=== PATIENT | female | born 1950 | race Caucasian/White ===

== ENCOUNTER → 2017-02-24 | Outpatient (CLI) | payer MEDICARE, BC ==
--- NOTE | ~2017-02-24 | MY11 ---
[facility] A Service of [facility] RADIOLOGY TEXT RESULTS PATIENT: CAROL LEONG LOCATION: [facility] : 46 UNIT #: [id number] AGE: [address]: IRVIN TELLEZ MD SEX: F ORDER DR: [id number] [place] [id number] O MR#: [id number] Acc #: [id number] NAME: CAROL LEONG : 1950 SEX: F STUDY DATE/TIME: 02/24/2017 11:01 UNIT: [facility] ROOM: STUDY DESCRIPTION: MY Mammogram Screening [place] Attending Physician: Irvin Tellez M.D. Referring Physician: Irvin Tellez M.D. Ordering Physician: Irvin Tellez M.D. Primary Care Physician: Irvin Tellez M.D. MEDICAL IMAGING REPORT This report is preliminary unless electronic signature is present. EXAM Bilateral digital screening mammogram CAD COMPARISONS 02/23/2016, 05/04/2015, 02/15/2014, 09/18/2012, and 08/12/2011. INDICATION Breast cancer screening. 66-year asymptomatic female. No personal or family history of breast cancer. FINDINGS The breasts all almost entirely fatty. There are no suspicious findings in either breast. There is stable size of a mass in the anterior third of the 3 o'clock right breast with oval shape and circumscribed margins. This has become more calcified with internal coarse confluent calcifications consistent with an involuting fibroadenoma. IMPRESSION No mammographic evidence of malignancy. Continued annual screening mammography and clinical breast exam are recommended. Patient's over the age of 40 are entered into a reminder system with target due date for the next mammogram. BIRADS: 2 Benign findings Dictated by... Hayden Barillas M.D. THIS IS AN ELECTRONICALLY VERIFIED REPORT Hayden Barillas M.D. at 02/24/2017 5:28 PM [facility] A Service of [facility] RADIOLOGY TEXT RESULTS PATIENT: CAROL LEONG LOCATION: [facility] #: [id number] : 46 UNIT #: [id number] AGE: [address]: IRVIN TELLEZ MD SEX: F ORDER DR: Piper TD: 02/24/2017 13:22 JOB #: [id number] MEDICAL IMAGING REPORT Page 1 of 1
== END | disposition home or self-care (01) ==
LOC: SMAM 10:20
DX: Z12.31 Encounter for screening mammogram for malignant neoplasm of breast (principal)
CPT/HCPCS: G0202